=== PATIENT | female | born 1960 | race African-American/Black ===

== ENCOUNTER 2017-12-25 18:41 | Emergency (ER) | payer OTHER ==
[~2017-12-25] VITALS: Ht 157.5 cm; Wt 61.2 kg
[~2017-12-25 18:41] MED LIST: ACETAMINOPHEN325 M1 PO; ADULT LOW DOSE81 MG PO; ASPIRIN325 PO; ATIVAN1 MG PO; AUGMENTIN 875875 MG PO; BUSPAR30 MG PO; BUSPIRONE HCL10 MG PO; CRESTOR10 MG PO; DULCOLAX10 MG RC; EFFEXOR XR37.5 MG PO; ENOXAPARIN40 MG/0.1 SUBQ; ESTRACE1 MG PO; JANUMET 50-5001 EACH PO; JANUMET XR 50-1 EACH PO; LACTULOSE10 GM/153 PO; LAMICTAL100 MG PO; LIDODERM 5%1 PATC1 TRANSDERM; LUMIGAN2.5 M1 OP; MIRALAX17 GM PO; NEXIUM40 MG PO; NORFLEX100 MG PO; NOVOLOG100 UNIT/1 SUBQ; OXYBUTYNIN 5 MG5 M2 PO; PANTOPRAZOLE SO40 M1 PO; SINGULAIR 10 MG10 M1 PO; SKELAXIN 800 M800 M1 PO; TRAMADOL HCL50 MG PO; TRAZODONE HCL100 MG PO; TUMS PO; ULTRAM 50MG TAB50 MG PO; VALACYCLOVIR500 MG PO; VENLAFAXIN37.5 MG/1 PO; VESICARE10 M1 PO; VIIBRYD20 MG PO; XANAX1 MG PO; ZANTAC 150MG T150 MG PO
[2017-12-25 19:25] LABS: HEMATOCRIT 40.4 % (37.0-47.0); HEMOGLOBIN 13.3 gm/dL (12.0-15.0); MCH 29.7 pg (26.0-34.0); MCHC 32.8 g/dL (28.0-37.0); MCV 90.3 fL (80.0-100.0); PLATELET COUNT 200 thou/uL (150-400); RBC 4.48 mil/uL (4.20-5.00); RDW 14.5 % (10.5-14.5); WBC 19.2 thou/uL (4.0-11.0)
[2017-12-25] MEDS ORDERED: BACTRIM DS TAB1 EAC1 PO (19:30)
[2017-12-25] MEDS ORDERED: ZOFRAN ODT4 MG PO (19:30)
[2017-12-25 19:36] LABS: CALCIUM 9.2 mg/dL (8.5-10.1); CREATININE 1.4 mg/dL (0.6-1.0); POTASSIUM 3.7 mmol/L (3.5-5.1)
[2017-12-25 19:43] LABS: ALBUMIN 3.2 g/dL (3.4-5.0); DIRECT BILIRUBIN 0.1 mg/dL (<0.1-0.3); TOTAL BILIRUBIN 0.4 mg/dL (<0.1-1.0); TOTAL PROTEIN 7.6 g/dL (6.4-8.2)
[2017-12-25 19:51] LABS: ABSOLUTE NEUTROPHILS 14.6 thou/uL (1.4-8.2)
== END 2017-12-25 20:27 | disposition home or self-care (01) ==
LOC: ER 18:41
PROVIDERS: Emergency Medicine
DX: N12 Tubulo-interstitial nephritis, not specified as acute or chronic (principal); Z88.6 Allergy status to analgesic agent; Z87.891 Personal history of nicotine dependence

== ENCOUNTER 2017-12-28 11:07 | Emergency (ER) | payer OTHER ==
[~2017-12-28] VITALS: Ht 157.5 cm; Wt 74.4 kg
[~2017-12-28 11:07] MED LIST changes: +BACTRIM DS TAB1 EAC1 PO; +ZOFRAN ODT4 MG PO
[2017-12-28 12:27] LABS: CALCIUM 9.4 mg/dL (8.5-10.1); CREATININE 1.4 mg/dL (0.6-1.0); HEMATOCRIT 38.7 % (37.0-47.0); HEMOGLOBIN 12.8 gm/dL (12.0-15.0); MCH 30.2 pg (26.0-34.0); MCHC 33.2 g/dL (28.0-37.0); MCV 90.9 fL (80.0-100.0); PLATELET COUNT 275 thou/uL (150-400); POTASSIUM 4.4 mmol/L (3.5-5.1); RBC 4.25 mil/uL (4.20-5.00); RDW 14.1 % (10.5-14.5); WBC 10.6 thou/uL (4.0-11.0)
[2017-12-28 12:33] LABS: ALBUMIN 3.2 g/dL (3.4-5.0); TOTAL BILIRUBIN 0.2 mg/dL (<0.1-1.0)
[2017-12-28] MEDS ORDERED: NORFLEX100 MG PO (12:57)
[2017-12-28] MEDS ORDERED: PREDNISONE 20 M20 MG PO (12:57)
[2017-12-28 13:05] LABS: URINE BILIRUBIN NEGATIVE (Negative); URINE BLOOD NEGATIVE (Negative); URINE CLARITY SL CLOUDY; URINE COLOR YELLOW; URINE GLUCOSE-RANDOM* NEGATIVE (Negative); URINE KETONES NEGATIVE (Negative); URINE LEUKOCYTES-REFLEX NEGATIVE (Negative); URINE NITRITE-REFLEX NEGATIVE (Negative); URINE PROTEIN (DIPSTICK) TRACE (Negative); URINE SPECIFIC GRAVITY >= 1.030 (1.005-1.035); URINE UROBILINOGEN 0.2 E.U./dl (0.2-1.0)
[2017-12-28 13:14] LABS: ABSOLUTE NEUTROPHILS 7.5 thou/uL (1.4-8.2)
== END 2017-12-28 14:14 ==
LOC: ER 11:07
PROVIDERS: Emergency Medicine
DX: N12 Tubulo-interstitial nephritis, not specified as acute or chronic (principal); J32.9 Chronic sinusitis, unspecified; G44.209 Tension-type headache, unspecified, not intractable; I10 Essential (primary) hypertension; E11.40 Type 2 diabetes mellitus with diabetic neuropathy, unspecified; Z79.4 Long term (current) use of insulin; Z88.6 Allergy status to analgesic agent; Z87.891 Personal history of nicotine dependence

== ENCOUNTER 2018-01-02 17:30 | Emergency (ER) | payer OTHER ==
[~2018-01-02] VITALS: Ht 157.5 cm; Wt 74.4 kg
--- NOTE | ~2018-01-02 | EKG ---
[address] [address] ELECTROCARDIOGRAM REPORT Name: SETH BRAR [id number] Admission: 01/02/18 Attend Phys: Discharge: Date of : 58 Report #: [id number] THIS REPORT FOR: //name// [facility] ED Test Date: 2018-01-02 Test Time: 19:37:39 Pat Name: SETH BRAR Department: Room: Gender: F Sighter: ROX : 1960 Requested By: Saw Avery Order Number: [id number] MD: Measurements Intervals [place] Rate: 69 P: 28 TN: 144 QRS: 26 QRSD: 77 T: 24 QT: 378 QTc: 405 Interpretive Statements Sinus rhythm Compared to ECG 07/31/2017 10:27:02 No significant changes [email or web address] By: 36 [id number] Epiphany MD Rylee /EPI
[~2018-01-02 17:30] MED LIST changes: +PREDNISONE 20 M20 MG PO
[2018-01-02 19:46] LABS: HEMATOCRIT 39.2 % (37.0-47.0); HEMOGLOBIN 12.7 gm/dL (12.0-15.0); MCH 29.3 pg (26.0-34.0); MCHC 32.5 g/dL (28.0-37.0); PLATELET COUNT 415 thou/uL (150-400); RBC 4.35 mil/uL (4.20-5.00); RDW 14.2 % (10.5-14.5); WBC 25.1 thou/uL (4.0-11.0)
[2018-01-02 19:50] LABS: BE(vivo) 3.9 mmol/L (-2 to +3); HCO3 28.2 mmol/L (22.0-26.0); PCO2 VENOUS 41.5 mmHg (41.0-51.0); PO2 VENOUS 51.1 mmHg (35.0-45.0)
[2018-01-02 19:55] LABS: CALCIUM 9.6 mg/dL (8.5-10.1); POTASSIUM 4.5 mmol/L (3.5-5.1)
[2018-01-02 20:01] LABS: ALBUMIN 3.6 g/dL (3.4-5.0); TOTAL BILIRUBIN 0.1 mg/dL (<0.1-1.0); TOTAL PROTEIN 7.6 g/dL (6.4-8.2)
[2018-01-02 20:14] LABS: ABSOLUTE NEUTROPHILS 20.8 thou/uL (1.4-8.2)
[2018-01-02 20:15] LABS: HYPOCHROMASIA 1+
== END 2018-01-02 21:26 | disposition home or self-care (01) ==
LOC: ER 17:30
PROVIDERS: Emergency Medicine
DX: E11.65 Type 2 diabetes mellitus with hyperglycemia (principal); I10 Essential (primary) hypertension; F41.9 Anxiety disorder, unspecified; E11.40 Type 2 diabetes mellitus with diabetic neuropathy, unspecified; Z90.89 Acquired absence of other organs; Z90.710 Acquired absence of both cervix and uterus; Z86.73 Personal history of transient ischemic attack (TIA), and cerebral infarction without residual deficits; Z79.4 Long term (current) use of insulin; Z88.6 Allergy status to analgesic agent; Z88.8 Allergy status to other drugs, medicaments and biological substances; Z87.891 Personal history of nicotine dependence

== ENCOUNTER 2020-08-30 14:02 | Emergency (ER) | payer OTHER ==
[~2020-08-30] VITALS: Ht 157.5 cm; Wt 61.2 kg
[2020-08-30 14:51] LABS: CALCIUM 9.5 mg/dL (8.5-10.1); POTASSIUM 4.9 mmol/L (3.5-5.1)
[2020-08-30 15:59] VITALS: BP 110/65
== END 2020-08-30 15:59 | disposition home or self-care (01) ==
LOC: ER 14:02
PROVIDERS: Emergency Medicine
DX: E11.65 Type 2 diabetes mellitus with hyperglycemia (principal); I10 Essential (primary) hypertension; Z86.73 Personal history of transient ischemic attack (TIA), and cerebral infarction without residual deficits; Z90.89 Acquired absence of other organs; Z79.899 Other long term (current) drug therapy; Z87.891 Personal history of nicotine dependence; Z88.8 Allergy status to other drugs, medicaments and biological substances

== ENCOUNTER 2020-09-15 10:48 | Inpatient (IN) | payer OTHER ==
[2020-09-15] VITALS (9 sets, daily range): BP systolic 109–142; BP diastolic 53–93
[~2020-09-15] VITALS: Ht 157.5 cm; Wt 58.1 kg
[2020-09-15 12:42] LABS: ABSOLUTE NEUTROPHILS 16.1 thou/uL (1.4-8.2); BASOPHILS 0.4 % (0.0-2.0); EOSINOPHILS 0.1 % (0.0-3.0); HEMATOCRIT 54.7 % (37.0-47.0); HEMOGLOBIN 17.4 gm/dL (12.0-15.0); LYMPHOCYTES 9.8 % (24.0-44.0); MCH 29.5 pg (26.0-34.0); MCHC 31.9 g/dL (28.0-37.0); MCV 92.5 fL (80.0-100.0); MONOCYTES 7.3 % (1.0-8.0); PLATELET COUNT 191 thou/uL (150-400); POLYS 82.4 % (36.0-66.0); RBC 5.91 mil/uL (4.20-5.00); RDW 14.3 % (10.5-14.5); WBC 19.5 thou/uL (4.0-11.0)
[2020-09-15 12:44] LABS: URINE BILIRUBIN 1+ (Negative); URINE BLOOD 2+ (Negative); URINE CLARITY CLEAR; URINE COLOR YELLOW; URINE GLUCOSE-RANDOM* 2+ (Negative); URINE KETONES 3+ (Negative); URINE LEUKOCYTES-REFLEX NEGATIVE (Negative); URINE NITRITE-REFLEX NEGATIVE (Negative); URINE PROTEIN (DIPSTICK) 2+ (Negative); URINE SPECIFIC GRAVITY >= 1.030 (1.005-1.035); URINE UROBILINOGEN 0.2 E.U./dl (0.2-1.0)
[2020-09-15 12:45] LABS: ICTOTEST (BILI CONFIRMATORY) Negative (Negative)
[2020-09-15 12:53] LABS: HYALINE CASTS 0-3 Few /LPF (None Seen); SQUAMOUS 0-3 Few /LPF (0-3); URINE RBC 0-2 Rare /HPF (0-2); URINE WBC-REFLEX None Seen /HPF (0-5)
[2020-09-15 12:54] LABS: BACTERIA-REFLEX 1-9 Few /HPF (None Seen); CRYSTALS None Seen /LPF (None Seen)
[2020-09-15 13:03] LABS: ALBUMIN 4.9 g/dL (3.4-5.0); CALCIUM 10.3 mg/dL (8.5-10.1); CREATININE 1.3 mg/dL (0.6-1.0); DIRECT BILIRUBIN 0.1 mg/dL (<0.1-0.2); TOTAL BILIRUBIN 0.6 mg/dL (0.2-1.0); TOTAL PROTEIN 8.9 g/dL (6.4-8.2)
[2020-09-15 17:35] LABS: ALBUMIN 4.1 g/dL (3.4-5.0); ANION GAP 19 mmol/L (7-16); BUN 12 mg/dL (7-18); CALCIUM 9.4 mg/dL (8.5-10.1); CHLORIDE 104 mmol/L (98-107); CO2 12 mmol/L (21-32); CREATININE 1.1 mg/dL (0.6-1.0); GLUCOSE 134 mg/dL (74-106); PHOSPHORUS 1.9 mg/dL (2.6-4.7); POTASSIUM 4.2 mmol/L (3.5-5.1); SODIUM 135 mmol/L (136-145)
[2020-09-15 19:31] LABS: MAGNESIUM 1.6 mg/dL (1.8-2.4)
[2020-09-15 21:17] LABS: ALBUMIN 3.7 g/dL (3.4-5.0); CALCIUM 9.2 mg/dL (8.5-10.1); CREATININE 1.1 mg/dL (0.6-1.0); PHOSPHORUS 1.5 mg/dL (2.6-4.7); POTASSIUM 3.7 mmol/L (3.5-5.1)
[2020-09-16] VITALS (17 sets, daily range): BP systolic 96–157; BP diastolic 50–93
[2020-09-16 01:16] LABS: ALBUMIN 3.6 g/dL (3.4-5.0); CALCIUM 8.8 mg/dL (8.5-10.1); CREATININE 0.9 mg/dL (0.6-1.0); PHOSPHORUS 1.6 mg/dL (2.5-4.9)
[2020-09-16 01:18] LABS: POTASSIUM 4.1 mmol/L (3.5-5.1)
--- NOTE | 2020-09-16 04:15 | NUR ---
ASSUMED PT CARE AT 2223 FROM ER. PT ON DKA PROTOCOL. PT A&0X4. VSS. PT STABLE, AMBULATORY. PT RESTING IN BED. ANION GAP CLOSING IN, WILL CONTINUE TO CLOSELY MONITOR PER DKA POC.
--- NOTE | 2020-09-16 07:00 | NUR ---
ASSUMMED CARE AT 0700 FROM THE NIGHT NURSE.
[2020-09-16 10:49] LABS: MCH 29.3 pg (26.0-34.0); MCHC 32.6 g/dL (28.0-37.0); MCV 89.9 fL (80.0-100.0); RBC 4.78 mil/uL (4.20-5.00); RDW 13.9 % (10.5-14.5); WBC 7.5 thou/uL (4.0-11.0)
[2020-09-16 11:06] LABS: CREATININE 0.8 mg/dL (0.6-1.0)
[2020-09-16 11:11] LABS: ALBUMIN 3.4 g/dL (3.4-5.0); CALCIUM 8.9 mg/dL (8.5-10.1); CREATININE 0.8 mg/dL (0.6-1.0); PHOSPHORUS 1.4 mg/dL (2.6-4.7); POTASSIUM 3.1 mmol/L (3.5-5.1)
--- NOTE | 2020-09-16 14:10 | NUR ---
INSULIN DRIP DC AND LANTUS INSULIN GIVEN. DIET SERVED. PATIENT UP TO THE RESTROOM. DR TRIPATHI INFOMED OF POTASSIUM OF 3.0 AND ORDERS RECEIVED. POTASSIUM GIVEN PER ORDER.
--- NOTE | 2020-09-16 15:12 | EKG ---
[address] [place] [address] ELECTROCARDIOGRAM REPORT Name: SETH BRAR Room #: 249-P ADM IN M.R.#: [id number] Admission: 09/15/20 Attend Phys: Kyra Pham MD Discharge: Date of : 58 Report #: [id number] [facility] ED Test Date: 2020-09-15 Test Time: 12:31:40 Pat Name: SETH BRAR Department: Room: 249 Gender: F Faceter: frankie : 1960 Requested By: Sulaiman Zambrano Order Number: [id number] MD: Sandro Nguyen Measurements Intervals [place] Rate: 119 P: 61 FL: 141 QRS: 43 QRSD: 69 T: 41 QT: 324 QTc: 456 Interpretive Statements Sinus tachycardia Nonspecific ST segment abnormality Compared to ECG 01/02/2018 19:37:39 Heart rate has increased Electronically Signed On 09-16-2020 15:12:05 MACHINE [employer]SE [employer]TER by Sandro Nguyen [email or web address] <ELECTRONICALLY SIGNED> By: Sandro Nguyen MD, [facility] 09/16/20 1512 1231 1231 Sandro Nguyen MD, FACC /EPI
--- NOTE | 2020-09-16 17:29 | NUR ---
REPORT CALLED TO CORTNEY AMOR ON . 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 IV IS SALINE LOCKED. NO C/O DISCOMFORT VOICED AT THIS TIME.
--- NOTE | 2020-09-16 17:47 | NUR ---
Pt transferred from ICU approx 1720. Eating dinner. Denies pain. No other complaints. Will give report to abi AMOR.
[2020-09-16 20:32] LABS: ALBUMIN 3.3 g/dL (3.4-5.0); CALCIUM 8.9 mg/dL (8.5-10.1); PHOSPHORUS 1.5 mg/dL (2.6-4.7); POTASSIUM 3.7 mmol/L (3.5-5.1)
[2020-09-17 02:06] LABS: GLYCOHEMOGLOBIN (HGB A1C) 13.4 % (4.8-5.6)
[2020-09-17 03:20] VITALS: BP 124/86
--- NOTE | 2020-09-17 03:29 | NUR ---
ASSUMED PT CARE AT 1900.PT DENIED PAIN SO FAR.PT'S BG MONITORED WAS 96,NO COVERAGE GIVEN.PT STATED THAT SHE HAS NOT HAD BM IN A WEEK,NORMAL FOR HER BC SHE HAS NOT EATEN REAL FOOD FOR SOMETIME.PT LOOKING FORWARD TO BE DC LATER IN THE DAY.CALL LIGHT WITHIN REACH.
[2020-09-17 04:45] LABS: ABSOLUTE NEUTROPHILS 3.6 thou/uL (1.4-8.2); BASOPHILS 0.7 % (0.0-2.0); EOSINOPHILS 3.5 % (0.0-3.0); HEMATOCRIT 40.4 % (37.0-47.0); HEMOGLOBIN 13.2 gm/dL (12.0-15.0); LYMPHOCYTES 31.4 % (24.0-44.0); MCH 29.4 pg (26.0-34.0); MCHC 32.8 g/dL (28.0-37.0); MCV 89.6 fL (80.0-100.0); MONOCYTES 11.1 % (1.0-8.0); PLATELET COUNT 144 thou/uL (150-400); POLYS 53.3 % (36.0-66.0); RDW 13.5 % (10.5-14.5); WBC 6.7 thou/uL (4.0-11.0)
[2020-09-17 04:59] LABS: ALBUMIN 3.2 g/dL (3.4-5.0); CREATININE 0.7 mg/dL (0.6-1.0); POTASSIUM 3.7 mmol/L (3.5-5.1); TOTAL BILIRUBIN 0.5 mg/dL (0.2-1.0); TOTAL PROTEIN 5.8 g/dL (6.4-8.2)
[2020-09-17 07:46] VITALS: BP 123/89
[2020-09-17 15:23] VITALS: BP 122/83
[2020-09-17 16:38] LABS: MAGNESIUM 2.2 mg/dL (1.8-2.4); PHOSPHORUS 1.6 mg/dL (2.5-4.9)
--- NOTE | 2020-09-17 19:35 | NUR ---
PT CARE ASSUMED AT 0700. A&Ox4. UP AT [place] AND INDEPENDENT. PT HAD EPISODES OF ANXIETY THAT WERE RESOLVED WITH REDIRECTION AND WARM BLANKETS. ACHS WITH ORDERED INSULIN. DOSE ADJUSTED TODAY FROM 15 UNITS TO 10 UNITS. IV PATENT WITH NO REDNESS OR EDEMA, SALINE LOCKED. LIDOCAINE PATCHES APPLIED ON BOTH HIPS. NO PAIN NOTED BY PATIENT. MAG CITRATE GIVEN TO PT TODAY. NO BM YET. PT TO POSSIBLY DISCHARGE TOMORROW WITH A OUTPATIENT ENDOCRINOLOGY CONSULT TO MANAGE INSULINE. PT MEDS IN THE IV BIN. CALL LIGHT IN PLACE. WILL CONTINUE TO MONITOR.
[2020-09-17 19:46] VITALS: BP 130/94
[2020-09-18 04:22] LABS: ABSOLUTE NEUTROPHILS 2.4 thou/uL (1.4-8.2); BASOPHILS 1.1 % (0.0-2.0); EOSINOPHILS 3.1 % (0.0-3.0); HEMATOCRIT 40.6 % (37.0-47.0); HEMOGLOBIN 13.3 gm/dL (12.0-15.0); LYMPHOCYTES 42.6 % (24.0-44.0); MCH 29.4 pg (26.0-34.0); MCHC 32.9 g/dL (28.0-37.0); MCV 89.4 fL (80.0-100.0); MONOCYTES 11.8 % (1.0-8.0); PLATELET COUNT 145 thou/uL (150-400); POLYS 41.4 % (36.0-66.0); RBC 4.54 mil/uL (4.20-5.00); RDW 13.6 % (10.5-14.5); WBC 5.9 thou/uL (4.0-11.0)
[2020-09-18 04:36] LABS: CALCIUM 9.1 mg/dL (8.5-10.1); CREATININE 0.8 mg/dL (0.6-1.0); MAGNESIUM 2.4 mg/dL (1.8-2.4); POTASSIUM 4.2 mmol/L (3.5-5.1)
[2020-09-18 07:30] VITALS: BP 107/71
[2020-09-18 16:05] VITALS: BP 122/89
--- NOTE | 2020-09-18 19:34 | NUR ---
PATIEN WILL PREFER TO HAVE BS DONE AT BEDTIME ALSO. STATES SHE LIKES TO KNOW AND PROBABLY TAKE SOME INSULIN AT HS. OTHERWISE QUITE PLEASANT WITH COOPERATIVE WITH CARE. RESPIRATIONS ARE EVEN UNLABORED. WILL CONT WITH PLAN OF CARE.
[2020-09-18 20:00] VITALS: BP 118/85
--- NOTE | 2020-09-19 02:01 | NUR ---
PATIENT ALERT AND ORIENTED X4. UP ADLIB IN ROOM AND HALLWAY. MEDICATED WITH ALPRAZOLAM PRN PER REQUEST. BS AT 2100 89 - NO INSULIN GIVEN. PATIENT REQUESTED AND RECEIVED SNACK. AT APPROX 0130 PATIENT CAME TO PROFESSOR OF PUBLIC ADMINISTRATION AND STATED THAT SHE HAD AN ACCIDENT IN THE BED AND NEEDED IT CHANGED. THIS WAS DONE ALONG WITH HER GOWNS (WEARS 2). THIS NURSE ASKED IF SHE FELT OVER-MEDICATED FOR A REASON ON INCONTINENCE. PATIENT STATED NO - SHE WAS JUST ASLEEP AND HAD AN ACCIDENT. REQUESTED MORE ALPRAZOLAM, HOWEVER, IT WAS NOT TIME. VERY FUSSY ABOUT ANYTHING. WILL MONITOR.
[2020-09-19 06:27] LABS: CALCIUM 9.3 mg/dL (8.5-10.1); CREATININE 0.8 mg/dL (0.6-1.0); POTASSIUM 4.3 mmol/L (3.5-5.1)
[2020-09-19 07:25] VITALS: BP 137/100
--- NOTE | 2020-09-19 09:10 | NUR ---
ASSESSMENT: CM REVIEWED CHART. PT WAS ADMITTED DUE TO DKA. PT REPORTS LIVING IN A HOUSE WITH PARENT. PT REPORTS HAVING ABOUT 5 STEPS TO ENTER WITH ABOUT 12-13 STEPS WITH HANDRAILS TO THE BEDROOM. PT REPORTS BEING FULLY INDEPENDENT WITH ADLS AND AMBULATION BUT STATES SHE HAS A CANE AT HOME IF NEEDED. PT REPORTS HAVING A GLUCOMETER TO CHECK HER SUGARS. PT STATES SHE HAS A CAREGIVER THROUGH [employer] AND HER MEDICAID THAT COMES 6X/WEEK FROM [phone]. PT REPORTS WANTING HOME HEALTH AT DISCHARGE AND HAS NO PREFERENCE OF [employer]. CM FAXED REFERRAL TO [facility] AND AWAITING INPUT. CM WILL CONTINUE TO FOLLOW TO ASSIST NEEDED.
[2020-09-19 09:12] VITALS: BP 137/100
--- NOTE | 2020-09-19 10:13 | NUR ---
ASSUMED CARE AT 0700. PT IS A&O X4. PT COMPLAINS OF BACK AND HEAD PAIN. PAIN MEDICATION WAS GIVEN AND LIDOCAINE WAS APPLIED ON LOWER BACK. PT COMPLAINS OF TINGLING ON FOOT BUT SHE SAID THIS IS NORMAL. DENIES SOA, N/V/D. BSG WAS 311 THIS MORNING. INSULIN WAS GIVEN TO PT. IV IS INTACT AND SHOWS NO SIGNS OF REDNESS OR SWELLING ON LEFT UPPER ARM. ZANAX WAS GIVEN TO RELAX PT. PT BP WAS HIGH THIS MORNING. REASSESS THE BP AND IT REDUCE. 139/91. PT STATES THAT IS MORE NORMAL. CALL LIGHT WITHIN REACH. WILL CONTINUE TO MONITOR.
[2020-09-19] MEDS ORDERED: LANTUS SUBQ (13:02)
[2020-09-19] MEDS ORDERED: HUMALOG100 UNIT/1 SUBQ (13:02)
[2020-09-19] MEDS ORDERED: OTHER MISCELL (13:39)
--- NOTE | 2020-09-20 09:31 | HC ---
[facility] [place] [address] CONSULTATION Name: SETH BRAR Room #: 441-P [facility] IN M.R.#: [id number] Admission: 09/15/20 Attend Phys: Kyra Pham MD Discharge: 09/19/20 Date of : 58 Report #: [id number] THIS REPORT FOR: cc: Isaac Suárez MD, John J. MD Al-Mubaslat, Ahmad MD ~ DATE OF SERVICE: 09/19/2020 ENDOCRINE CONSULTATION NOTE CONSULTING PHYSICIAN: Dr. Carrillo. REASON FOR CONSULTATION: Uncontrolled type 2 diabetes mellitus. HISTORY OF PRESENT ILLNESS: This is a 60-year-old female patient who presented on 09/15/2020 with changes consistent with diabetic ketoacidosis. Her glucose on arrival was 372 mg/dL with an anion gap of 26 and bicarbonate of 10. The patient was admitted for further care and monitoring and was successfully managed with intravenous insulin therapy after which her DKA changes have resolved. The patient indicates that she has had type 2 diabetes mellitus for over 10 years and that she has initially been treated with oral antidiabetic therapy. However, she has become largely insulin-dependent as of 4 years ago. Most recently, the patient has been maintained on a combination of Lantus insulin 32 units q.p.m. in addition to Humalog insulin that she takes with meals and ____ with her blood glucose values where mostly she would take doses of 15-20 units per meal. The patient describes blood glucose values that are typically in the 300 mg/dL range without issues of hypoglycemia. Also, she has been taking Jentadueto recently. The patient has a history of pancreatitis several years ago. She is not aware of difficulties pertaining to diabetic retinopathy, nephropathy, or CAD, but she did have a CVA in 2016. She does have difficulties pertaining to peripheral diabetic neuropathy affecting both feet. REVIEW OF SYSTEMS: CONSTITUTIONAL: Fatigue, tiredness, but not weight changes, fever or chills. HEENT: Negative for sore throat, sinus pain or ear drainage. PULMONARY: Negative for shortness of breath, cough or hemoptysis. CARDIAC: Negative for chest pain, palpitations, syncope or presyncope. GASTROINTESTINAL: Negative for active nausea and vomiting, but was noted for mild loose stools on arrival. NEUROLOGY: Baseline difficulties with numbness and tingling of both lower extremities. Otherwise, review of system is noncontributory other than what is [facility] [address] [place] [address] CONSULTATION Name: SETH BRAR Room #: 441-P [facility] IN .R.#: [id number] Admission: 09/15/20 Attend Phys: Kyra Pham MD Discharge: 09/19/20 Date of : 58 Report #: [id number] mentioned in HPI. PAST MEDICAL HISTORY: 1. Type 2 diabetes mellitus. 2. Peripheral diabetic neuropathy of the lower extremities. 3. History of cerebrovascular accident. 4. History of pancreatitis. 5. Anxiety. 6. Glaucoma. 7. Hyperlipidemia. PAST SURGICAL HISTORY: Tonsillectomy, tuboplasty, hysterectomy, carpal tunnel surgery. OUTPATIENT MEDICATIONS: Include prednisone 60 mg daily, Norflex 100 mg b.i.d. p.r.n. muscle spasm, Zofran p.r.n., Lum[place] eyedrops, valacyclovir 500 mg daily, Crestor 10 mg daily, trazodone 200 mg at bedtime, Singulair 10 mg at bedtime, aspirin 325 mg daily, buspirone 10 mg t.i.d., alprazolam p.r.n., Janumet 50/500 mg 1 tab daily. ALLERGIES: IBUPROFEN AND BENADRYL. FAMILY HISTORY: Noncontributory. SOCIAL HISTORY: The patient denies use of alcohol or illicit drugs. She smokes occasionally. She describes using 1 pack of cigarettes per 2 weeks. PHYSICAL EXAMINATION: GENERAL: Pleasant female patient who is not in apparent pain or distress. She is sitting upright in bed, appearing comfortable. VITAL SIGNS: Blood pressure is 137/100 mmHg, heart rate is 89 beats per minute, respiration 18 per minute, temperature 36.8 degrees Celsius. CONSTITUTIONAL: The patient appears comfortable, not in apparent distress. HEENT: Anicteric sclerae. Intact extraocular motions. NECK: Supple, without JVD, carotid bruits or lymphadenopathy. I do not appreciate thyromegaly. CHEST: Noted for moderate entry bilaterally with scattered rales. No wheezes or crackles. HEART: Regular rate and rhythm without murmurs or gallops. ABDOMEN: Soft, lax. No guarding. Active bowel sounds. EXTREMITIES: Lower extremity exam is negative for significant ankle edema, skin breaks or ulcerations. NEUROLOGIC: Awake, alert and oriented to time, place and person. The remainder of her examination is nonfocal. PSYCHIATRY: Pleasant, interactive. Normal mood and affect. [facility] [address] [place] [address] CONSULTATION Name: SETH BRAR Room #: 441-P DIS IN M.R.#: [id number] Admission: 09/15/20 Attend Phys: Kyra Pham MD Discharge: 09/19/20 Date of : 58 Report #: [id number] LABORATORY DATA: Blood glucose values throughout her stay have been examined at length. The patient was well controlled while on IV insulin. Her most recent blood glucose is at 351. She had a reading of 89 mg/dL at 9:30 p.m. yesterday and 96 mg/dL at 9:00 p.m. on 09/16/2020. Sodium 141, potassium 4.3, chloride 103, CO2 of 29, anion gap 9. This was a 26 on arrival, BUN 13, creatinine 0.8, AST 16, lipase 51, total bilirubin 0.5, direct bilirubin 0.1, calcium 9.3, phosphorus 2.0, magnesium 2.3, alkaline phosphatase 104, ALT 23, total protein 5.8, albumin 3.2. EGFR 88. Lactic acid 1.3. INR 1.0. White blood count 5.9, hemoglobin 13.3, hematocrit 40.6, platelets 145. Hemoglobin A1c 13.4%. ASSESSMENT AND PLAN: 1. Diabetic ketoacidosis. As noted above, the patient presented in DKA and this has resolved with the appropriate management that the patient has been offered. 2. Type 2 diabetes mellitus. The patient has a fairly uncontrolled baseline as per her stated blood glucose values which are congruent with a hemoglobin A1c measurement that she has had during this hospital stay. The patient was counseled at length about the importance of achieving and maintaining adequate glycemic control so as to avoid diabetic complications. I stressed the importance of effective diet and exercise measures in this regard. Also, I do not believe that the patient is a good candidate for DPP-4 inhibitors due to her history of pancreatitis and therefore, I propose that her Janumet be discontinued completely. Based on her blood glucose pattern, it appears that the patient has suboptimal meal insulin coverage with Humalog and therefore, I will increase her Humalog dosage to 16 units t.i.d. On the same token and judging by the pattern of lower blood glucose values at bedtime, I will drop her Lantus to 28 units q.a.m. I would propose that she maintains the same regimen at home at least initially pending further evaluation by her egg caser as an outpatient. In the immediate setting, I would advise continuing with Humalog supplemental scale coverage and routine blood glucose monitoring. 3. Hyperlipidemia. I stressed the importance of adequate lipid control. She is advised to continue with rosuvastatin therapy. I certainly appreciate this consultation by Dr. Carrillo. <ELECTRONICALLY SIGNED> By: Michael Baltazar MD 09/20/20 0931 1252 1311 Michael Baltazar MD /nt
== END 2020-09-19 18:29 | disposition home health service (06) | DRG 637 ==
LOC: ER 10:48 → 4S 14:30 → EROBS 14:30 → ICU 22:33 → 4S 09-16 17:24
PROVIDERS: Internal Medicine; Nurse Practitioner; Nurse Practitioner Family; ADMIT Internal Medicine; ATTEND Internal Medicine
DX: E11.10 Type 2 diabetes mellitus with ketoacidosis without coma (principal); R65.11 Systemic inflammatory response syndrome (SIRS) of non-infectious origin with acute organ dysfunction; N17.0 Acute kidney failure with tubular necrosis; E44.0 Moderate protein-calorie malnutrition; E86.0 Dehydration; I10 Essential (primary) hypertension; G89.29 Other chronic pain; E78.5 Hyperlipidemia, unspecified; E87.6 Hypokalemia; F32.9 Major depressive disorder, single episode, unspecified; D69.6 Thrombocytopenia, unspecified; E83.39 Other disorders of phosphorus metabolism; F17.210 Nicotine dependence, cigarettes, uncomplicated; E11.42 Type 2 diabetes mellitus with diabetic polyneuropathy; F41.9 Anxiety disorder, unspecified; Z20.822 Contact with and (suspected) exposure to COVID-19; Z90.49 Acquired absence of other specified parts of digestive tract; Z90.710 Acquired absence of both cervix and uterus; Z79.2 Long term (current) use of antibiotics; Z86.73 Personal history of transient ischemic attack (TIA), and cerebral infarction without residual deficits; Z79.899 Other long term (current) drug therapy; Z88.8 Allergy status to other drugs, medicaments and biological substances; Z79.4 Long term (current) use of insulin; Z68.23 Body mass index [BMI] 23.0-23.9, adult
CPT/HCPCS: 10078; 10102; 10195